=== PATIENT | male | born 1985 | race Caucasian/White ===

== ENCOUNTER 2024-02-27 07:42 | Emergency (ER) | payer BC ==
[~2024-02-27] VITALS: Ht 188 cm; Wt 93.0 kg
[2024-02-27 08:12] VITALS: BP 134/78; TEMP 98.8; O2SAT 100
[2024-02-27] MEDS ORDERED: FLUORESCEIN SODIUM OPHTH 1 EA STRIP ONE (08:27)
[2024-02-27] MEDS ORDERED: TETRAcaine 5 ML BOTTLE ONE (08:27)
[2024-02-27] MEDS ORDERED: POLY10DR OP (08:41)
[2024-02-27] MEDS: FLUORESCEIN SODIUM OPHTH 1 EA STRIP OP ONE (08:47)
[2024-02-27] MEDS: TETRACAINE HCL 0.5% OPHTALMIC 15 ML BOTTLE EACHEYE ONE (08:47)
== END 2024-02-27 08:52 | disposition home or self-care (01) ==
LOC: ER 07:42
DX: S05.01XA Injury of conjunctiva and corneal abrasion without foreign body, right eye, initial encounter (principal); B30.9 Viral conjunctivitis, unspecified; X58.XXXA Exposure to other specified factors, initial encounter; Y93.89 Activity, other specified; Y92.89 Other specified places as the place of occurrence of the external cause; Y99.8 Other external cause status